=== PATIENT | female | born 1985 | race African-American/Black ===

== ENCOUNTER 2017-12-15 05:11 | Day surgery (SDC) | payer OTHER ==
[2017-12-15] VITALS (9 sets, daily range): BP systolic 105–130; BP diastolic 63–78
[~2017-12-15] VITALS: Ht 170.2 cm; Wt 136.1 kg
[2017-12-15] MEDS ORDERED: NKM (05:48)
[2017-12-15] MEDS ORDERED: celeBREX 200mg Cap **SURGERY PATIENTS ONLY ORAL ONE ×2 (06:00→06:10)
[2017-12-15] MEDS ORDERED: ceFAZolin 1gm in D5W 55ml IVP ONE (06:00)
[2017-12-15] MEDS ORDERED: oxyCONTIN 20mg tab ORAL ONE (06:00)
[2017-12-15] MEDS ORDERED: Bupivacaine 0.25% Inj 30ml INJ ONE (06:57)
[2017-12-15] MEDS ORDERED: Morphine Sulfate PF 10 ML ONE (06:57)
[2017-12-15] MEDS ORDERED: Kenalog-40 1ml Vial ONE (06:58)
[2017-12-15] MEDS ORDERED: EPINEPHrine 1mg/1ml Amp ONE (06:58)
[2017-12-15] MEDS ORDERED: Ketorolac 30mg Inj ONE (06:58)
[2017-12-15] MEDS ORDERED: Lidocaine 1% 10mg/ml/Epi 0.005mg/ml 30ml vial INJ ONE (06:58)
[2017-12-15] MEDS ORDERED: Norco 5mg/325mg tab ORAL PRN ×3 (07:00→09:30)
[2017-12-15] MEDS ORDERED: Dexamethasone 4mg/ml vial ONE (07:00)
[2017-12-15] MEDS ORDERED: HYDROmorphone 1mg/ml Carpuject SUBQ PRN ×2 (07:00→10:30)
[2017-12-15] MEDS ORDERED: NS Irrig 4000ml IRRIG ONE (07:00)
[2017-12-15] MEDS ORDERED: D5 1/2NS 1,000 ML IV SCH ×2 (07:00→11:00)
[2017-12-15] MEDS ORDERED: Lidocaine 1% MPF 10mg/ml 5ml ONE (07:00)
[2017-12-15] MEDS ORDERED: Tylenol #3 tab (300mg/30mg) ORAL PRN ×2 (07:00→09:30)
[2017-12-15] MEDS ORDERED: LR 1000ml ONE (07:00)
[2017-12-15] MEDS ORDERED: Propofol 200mg/20ml IV ONE (07:00)
[2017-12-15] MEDS ORDERED: Duramorph PF 10mg/10ml amp IV ONE (07:00)
[2017-12-15] MEDS ORDERED: fentaNYL 100 mcg/2 mL IV ONE (07:00)
[2017-12-15] MEDS ORDERED: Alfentanil 2ml Inj ONE (07:00)
[2017-12-15] MEDS ORDERED: Midazolam 2mg/2ml Inj ONE (07:00)
--- NOTE | 2017-12-15 07:02 | Pre-Procedure Note/Attestation ---
Pre-Procedure Note/Attestation Complete Prior to Procedure Planned Procedure: left Procedure Narrative: knee arthroscopy medial meniscetomy, possible synovectomy, possible chondroplasty Indications for Procedure Pre-Operative Diagnosis: left knee medial meniscus Attestation I attest that I discussed the nature of the procedure; its benefits; risks and complications; and alternatives (and the risks and benefits of such alternatives ), prior to the procedure, with the patient (or the patient's legal contracts representative). I attest that, if there was a reasonable possibility of needing a blood transfusion, the patient (or the patient's legal contracts representative) was given the [place] [facility] [employer] [facility] standardized written summary, pursuant to the Nish[employer] Manuel Blood Safety Act ([place] Health and Safety Code # 1645, as amended). I attest that I re-evaluated the patient just prior to the surgery and that there has been no change in the patient's H&P, except as documented below: KYM ADAME Dec 15, 2017 07:02
--- NOTE | 2017-12-15 07:02 | Operative Note - PDOC ---
Operative Note Operative Note Pre-op Diagnosis: left knee medial meniscus Procedure: left knee medial menisecutomy, Post-op Diagnosis: same as pre-op plus Operative Findings: consistent w/pre-op dx studies Anesthesia: MAC Specimen: none Complications: none Condition: stable Estimated Blood Loss: none Implant(s) used?: No KYM ADAME Dec 15, 2017 07:02
--- NOTE | 2017-12-15 07:06 | Anethesia Preoperative Eval ---
Anesthesia Pre-op PMH/ROS General Date of Evaluation: Dec 15, 2017 Time of Evaluation: 07:01 Anesthesiologist: Lamin ASA Score: ASA 3 Mallampati Score Class I : Soft palate, uvula, fauces, pillars visible Class II: Soft palate, uvula, fauces visible Class III: Soft palate, base of uvula visible Class IV: Only hard plate visible Mallampati Classification: Class III Surgeon: Zheng Diagnosis: L Knee Pain Surgical Procedure: L Knee Arthroscopy Anesthesia History: none Family History: no anesthesia problems Allergies: Coded Allergies: No Known Allergies (Unverified , 12/14/17) Medications: see eMAR Anesthesia Pre-op Phys. Exam Physician Exam Last Vital Signs Date Time Temp Pulse Resp B/P (MAP) Pulse Ox O2 Delivery O2 Flow Rate FiO2 12/15/17 06:14 97.7 55 20 105/63 100 Room Air 97.7 Constitutional: NAD Neurologic: CN 2-12 intact Cardiovascular: RRR Respiratory: CTA Gastrointestinal: S/NT/ND Airway Exam Mallampati Score: Class III MO: limited ROM: limited Teeth: missing, intact Anesthesia Pre-op A/P Labs Urine Test Test 12/15/17 06:06 Urine HCG, Qualitative Negative Risk Assessment & Plan Assessment: ASA 3 Plan: GA, BIS Status Change Before Surgery: No Pre-Antibiotics Dru Grams Ancef IV Given Within 1 Hr of Incision: Yes Time Given: 07:16 Jono Kimble MD Dec 15, 2017 07:06
[2017-12-15] MEDS ORDERED: LR 1000ml 1,000 ML IVLG SCH (07:07)
[2017-12-15] MEDS ORDERED: LORazepam Inj 2mg/ml 1ml IV PRN (07:15)
[2017-12-15] MEDS ORDERED: oxyCODONE HCL/Acetaminophen 5/325mg ORAL PRN (07:15)
[2017-12-15] MEDS ORDERED: fentaNYL 100 mcg/2 mL IV PRN (07:15)
[2017-12-15] MEDS ORDERED: Atropine Inj 1mg/10ml Syr IV PRN (07:15)
[2017-12-15] MEDS ORDERED: Midazolam 2mg/2ml Inj IVP PRN (07:15)
[2017-12-15] MEDS ORDERED: DiphenhydrAMINE 50mg/ml Inj IVP PRN (07:15)
[2017-12-15] MEDS ORDERED: HYDROcodone/Acetamin 7.5/325 tab ORAL PRN (07:15)
[2017-12-15] MEDS ORDERED: Ketorolac 30mg Inj IV PRN ×2 (07:15)
[2017-12-15] MEDS ORDERED: Hydromorphone 0.5mg/0.5ml inj IVP PRN (07:15)
[2017-12-15] MEDS ORDERED: Labetalol 5mg/ml 20ml vial IV PRN (07:15)
--- NOTE | 2017-12-15 07:29 | Immediate Post-Op Evaluation ---
Immediate Post-Op Evalulation Immediate Post-Op Evalulation Procedure: L Knee Arthroscopy Date of Evaluation: Dec 15, 2017 Time of Evaluation: 08:29 IV Fluids: 500 LR Blood Products: 0 Estimated Blood Loss: 7 Urinary Output: 0 Blood Pressure Systolic: 129 Blood Pressure Diastolic: 70 Pulse Rate: 79 Respiratory Rate: 16 O2 Sat by Pulse Oximetry: 100 Temperature (Fahrenheit): 99 Pain Score (1-10): 2 Nausea: No Vomiting: No Complications 0 Patient Status: awake, reacts, patent, extubated, none Hydration Status: adequate Dru Grams Ancef IV Given Within 1 Hr of Incision: Yes Time Given: 07:16 Jono Kimble MD Dec 15, 2017 07:29
--- NOTE | 2017-12-15 07:30 | 48 Hour Post Anesthesia Eval ---
Post Anesthesia Evaluation Procedure: L Knee Arthroscopy Date of Evaluation: Dec 15, 2017 Time of Evaluation: 11:34 Blood Pressure Systolic: 126 0: 68 Pulse Rate: 82 Respiratory Rate: 18 Temperature (Fahrenheit): 98.6 O2 Sat by Pulse Oximetry: 98 Airway: patent Nausea: No Vomiting: No Pain Intensity: 2 Hydration Status: adequate Cardiopulmonary Status: Stable Mental Status/LOC: patient returned to baseline Follow-up Care/Observations: 0 Post-Anesthesia Complications: 0 Follow-up care needed: ready to discharge Jono Kimble MD Dec 15, 2017 07:30
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
== END 2017-12-15 10:10 | disposition home or self-care (01) ==
LOC: SUR 05:11
DX: S83.242A Other tear of medial meniscus, current injury, left knee, initial encounter (principal); S83.282A Other tear of lateral meniscus, current injury, left knee, initial encounter; S83.512A Sprain of anterior cruciate ligament of left knee, initial encounter; W01.0XXA Fall on same level from slipping, tripping and stumbling without subsequent striking against object, initial encounter; Y93.9 Activity, unspecified; Y92.512 Supermarket, store or market as the place of occurrence of the external cause
CPT/HCPCS: 29876; 29880; 81025; J0171; J0690; J1100; J1885; J2250; J2274; J2405; J2704; J3010; J3301; J3490; J7120; 94003; 94150